=== PATIENT | female | born 1975 | race Two or more races ===

== ENCOUNTER 2024-10-16 06:07 | Day surgery (SDC) | payer OTHER ==
[~2024-10-16 06:07] MED LIST: BISOPROLOL-HCT1 EACH PO; CLONAZEPAM1 MG PO; SYNTHROID100 MCG PO; ZESTRIL10 M1 PO
[2024-10-16] MEDS ORDERED: DIBUCAINE 30 GM TUBE ONE (11:35)
[2024-10-16] MEDS ORDERED: POVIDONE-IODINE 118 ML BOTT TOP ONE (11:35)
[2024-10-16] MEDS ORDERED: HEMOSTATIC MATRIX 1 KIT KIT TOP ONE (11:35)
[2024-10-16] MEDS ORDERED: CEFTRIAXONE SODIUM 2,000 MG VIAL ONE (11:35)
[2024-10-16] MEDS ORDERED: METRONIDAZOLE/SODIUM CHLORIDE 500 MG/100 ML PIGGYBACK IV ONE (11:35)
[2024-10-16] MEDS ORDERED: BUPIVACAINE LIPOSOME/PF 266 MG/20 ML VIAL IJ ONE (11:52)
[2024-10-16] MEDS ORDERED: ONDANSETRON HCL 2 MG/ML VIAL ONE (14:41)
[2024-10-16] MEDS ORDERED: ONDANSETRON HCL 2 MG/ML VIAL IV ONE (14:45)
[2024-10-16] MEDS ORDERED: MORPHINE SULFATE 4 MG/ML VIAL IV ONE (18:45)
== END 2024-10-16 19:55 | disposition home or self-care (01) ==
LOC: CIR.AMB 06:07
PROVIDERS: ATTEND Colon & Rectal Surgery
DX: K60.1 Chronic anal fissure (principal); K62.4 Stenosis of anus and rectum; K64.2 Third degree hemorrhoids; Z88.5 Allergy status to narcotic agent

== ENCOUNTER 2024-10-16 20:24 | Emergency (ER) | payer OTHER ==
[~2024-10-16] VITALS: Ht 162.6 cm; Wt 90.7 kg
[2024-10-16 20:40] VITALS: BP 134/78; O2SAT 98
[2024-10-16 21:35] LABS: BASO % 0.2 % (0.1-1.2); HEMATOCRIT 34.9 % (34.1-44.9); HEMOGLOBIN 11.4 g/dL (11.2-15.7); LYMPH # 0.81 (1.18-3.74); LYMPH % 6.5 % (19.3-53.1); MEAN CORPUSCULAR HEMOGLOBIN 25.9 pg (25.6-32.2); MONO # 0.71 (0.24-0.82); MONO % 5.7 % (4.7-12.5); NEUT % 87.2 % (34.0-71.1); PLATELET COUNT 342 K/uL (163-369); RED CELL DISTRIBUTION WIDTH 13.9 % (11.6-14.4)
[2024-10-16 21:45] LABS: PH,URINE 6.5 (5.0-8.0); URINE APPEARANCE Clear; URINE BILIRRUBIN Negative (NEGATIVE); URINE BLOOD Negative; URINE COLOR Yellow; URINE GLUCOSE Negative (NEGATIVE); URINE KETONE Negative (NEGATIVE); URINE LEUKOCYTE Negative; URINE NITRATE Negative; URINE PROTEIN Negative (NEGATIVE); URINE UROBILINOGEN 0.2 E.U./dl
[2024-10-16 21:49] LABS: URINE BACTERIA 2.4 uL (0.0-1933); URINE CAST 0.14 uL (0.0-1.40); URINE EPITHELIAL CELLS 2.2 uL (0.0-38.8); URINE RBC 4.4 uL (0.0-20.8); URINE WBC 2.9 uL (0.0-23.2)
[2024-10-16 21:57] LABS: ALBUMIN 3.5 gm/dL (3.4-5.0); BILIRUBIN TOTAL 0.29 mg/dL (0.3-1.2); CALCIUM 8.9 mg/dL (8.5-10.1); CREATININE SERUM 0.75 mg/dL (0.55-1.02); GFR 81.79; GLOBULINA 3.8 G/DL (2.4-3.5); POTASSIUM 3.27 mEq/L (3.5-5.1); TOTAL PROTEIN 7.3 gm/dL (6.4-8.2)
[2024-10-16] MEDS ORDERED: KETOROLAC TROMETHAMINE 60 MG VIAL IM ONE ×2 (22:30→22:36)
== END 2024-10-16 22:51 | disposition home or self-care (01) ==
LOC: ER 21:55
PROVIDERS: General Practice
DX: R33.9 Retention of urine, unspecified (principal); Z88.8 Allergy status to other drugs, medicaments and biological substances